=== PATIENT | male | born 1970 | race Caucasian/White ===

== ENCOUNTER 2021-08-11 18:17 | Emergency (ER) | payer OTHER ==
[~2021-08-11] VITALS: Ht 170.2 cm; Wt 68.0 kg
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
[2021-08-11 18:54] LABS: ABSOLUTE NEUTROPHILS 2.9 thou/uL (1.4-8.2); BASOPHILS 0.6 % (0.0-2.0); EOSINOPHILS 1.2 % (0.0-3.0); HEMOGLOBIN 12.9 gm/dL (14.0-18.0); LYMPHOCYTES 28.3 % (24.0-44.0); MCH 29.7 pg (26.0-34.0); MCHC 33.1 g/dL (28.0-37.0); MCV 89.7 fL (80.0-100.0); MONOCYTES 6.4 % (1.0-8.0); PLATELET COUNT 252 thou/uL (150-400); POLYS 63.5 % (36.0-66.0); RBC 4.35 mil/uL (4.50-6.00); WBC 4.6 thou/uL (4.0-11.0)
[2021-08-11 18:58] LABS: AMP/METHAMP Negative (Negative); ANION GAP 13 mmol/L (7-16); BARBITURATES Negative (Negative); BENZODIAZEPINES POSITIVE (Negative); BUN 14 mg/dL (7-18); CALCIUM 9.2 mg/dL (8.5-10.1); CHLORIDE 104 mmol/L (98-107); CO2 25 mmol/L (21-32); COCAINE Negative (Negative); CREATININE 0.9 mg/dL (0.7-1.3); GLUCOSE 83 mg/dL (74-106); METHADONE Negative (Negative); OPIATES Negative (Negative); PCP Negative (Negative); POTASSIUM 4.2 mmol/L (3.5-5.1); SODIUM 142 mmol/L (136-145)
[2021-08-11 19:04] LABS: ALBUMIN 3.8 g/dL (3.4-5.0); DIRECT BILIRUBIN < 0.1 mg/dL (<0.1-0.2); LIPASE 62 U/L (73-393); SALICYLATE 5.6 mg/dL (2.8-20.0); SGOT 45 U/L (15-37); SGPT 40 U/L (16-63); TOTAL BILIRUBIN 0.3 mg/dL (0.2-1.0); TOTAL PROTEIN 7.6 g/dL (6.4-8.2)
[2021-08-12 06:29] VITALS: BP 120/79
--- NOTE | 2021-08-12 09:13 | EKG ---
[address] [address] ELECTROCARDIOGRAM REPORT Name: SANDRAERNIEANAMARIA [id number] Admission: 08/11/21 Attend Phys: Discharge: Date of : 70 Report #: [id number] [facility] ED Test Date: 2021-08-11 Test Time: 18:23:41 Pat Name: ANMAARIA MENJIVAR Department: Room: Gender: M Diagnostic Radiologist: AMBER : 1970 Requested By: Supriya Escobar Order Number: [id number] MD: Eyal Suarez Measurements Intervals [place] Rate: 104 P: 55 FL: 180 QRS: 25 QRSD: 108 T: 71 QT: 376 QTc: 495 Interpretive Statements Sinus tachycardia Borderline T wave abnormalities Borderline prolonged QT interval No previous ECG available for comparison Electronically Signed On 08-12-2021 9:13:17 TRANSPORTATION MAINTENANCE SPECIALIST by Eyal Suarez [email or web address] <ELECTRONICALLY SIGNED> By: Eyal Suarez MD, [facility] 08/12/21 0913 1823 1823 Eyal Suarez MD, FACC /EPI
== END 2021-08-12 10:59 | disposition home or self-care (01) ==
LOC: ER 18:17
PROVIDERS: Student in an Organized Health Care Education/Training Program
DX: R45.851 Suicidal ideations (principal); Z20.822 Contact with and (suspected) exposure to COVID-19; F10.129 Alcohol abuse with intoxication, unspecified; Y90.8 Blood alcohol level of 240 mg/100 ml or more